=== PATIENT | female | born 1975 | race Caucasian/White ===

== ENCOUNTER → 2018-01-01 | Outpatient (CLI) | payer OTHER ==
[~2018-01-01] MED LIST: CLON0.5T3 PO; CLR10 PO; CNC/54 PO; IBUP-103 PO; NORGTAB39 PO; SUMA25TA12 PO; TIZA4CAP PO; TOPI50TA16 PO; VENL150C PO; VENL75CA PO; [UNRECOGNIZED DRUG - CODE] TOP; [UNRECOGNIZED DRUG - CODE] TOP
--- NOTE | 2018-01-01 11:15 | DIAGNOSTIC IMAGING REPORT ---
LEG LENGTH STUDY (WHOLE LEG) HISTORY: 42 years-old Female LEG LENGTH DISCREPANCY prior left hip arthroplasty and left knee ACL repair COMPARISON: None available TECHNIQUE: 4 radiographic images of the lower extremities were obtained for a leg length study FINDINGS: The right lower extremity measured from the femoral head to the tibial plafond measures 87.96 cm. The left lower extremity measured from the femoral head to the tibial plafond measures 87.01 cm. Left hip arthroplasty is noted. Postsurgical changes from left knee ACL repair. No acute fracture or dislocation identified. IMPRESSION: 1. Right lower extremity is 9.5 mm longer than the left. 2. Left hip arthroplasty. 3. Prior left knee ACL repair. The above report was generated using voice recognition software. It may contain grammatical, syntax or spelling errors. Electronically signed by: Ayaan Ferrell M.D. 01/01/2018 11:14 AM Dictated Date/Time: 01/01/2018 11:11 AM
== END | disposition home or self-care (01) ==
LOC: C.RAD 10:28
PROVIDERS: ATTEND Physician Assistant
DX: M21.70 Unequal limb length (acquired), unspecified site (principal); Z96.642 Presence of left artificial hip joint